=== PATIENT | female | born 1940 | race Caucasian/White ===

== ENCOUNTER → 2016-06-06 | Outpatient (CLI) | payer MEDICARE, OTHER ==
[2016-06-06 10:24] LABS: ABSOLUTE BASOPHILS # (AUTO) 0.1 10^3/uL (0.0-0.2); ABSOLUTE EOSINOPHILS # (AUTO) 0.2 10^3/uL (0.0-0.6); ABSOLUTE LYMPHOCYTES (AUTO) 1.4 10^3/uL (0.5-4.7); ABSOLUTE MONOCYTES (AUTO) 0.4 10^3/uL (0.1-1.4); ABSOLUTE NEUT (AUTO) 5.5 10^3/uL (1.7-8.2); BASOPHILS % (AUTO) 1.3 % (0-2); EOSINOPHILS % (AUTO) 2.1 % (0-6); HEMATOCRIT 41.2 % (36.0-47.0); HEMOGLOBIN 13.6 g/dL (12.0-15.5); HGB HCT DIFFERENCE -0.4; LYMPHOCYTES % (AUTO) 18.6 % (13-45); MEAN CORPUSCULAR HGB CONC 32.9 g/dL (32.0-36.0); MEAN CORPUSCULAR VOLUME 91 fl (80-97); MONOCYTES % (AUTO) 5.6 % (3-13); RED BLOOD COUNT 4.53 10^6/uL (3.72-5.28); RED CELL DISTRIBUTION WIDTH 13.5 % (11.5-14.0); SEGMENTED NEUTROPHILS % (AUTO) 72.4 % (42-78); WHITE BLOOD COUNT 7.6 10^3/uL (4.0-10.5)
[2016-06-06 10:42] LABS: ALANINE AMINOTRANSFERASE 28 U/L (9-52); ALBUMIN 3.7 g/dL (3.5-5.0); ALKALINE PHOSPHATASE 81 U/L (38-126); ANION GAP 11 (5-19); ASPARTATE AMINO TRANSFERASE 15 U/L (14-36); BILIRUBIN,TOTAL 0.6 mg/dL (0.2-1.3); BLOOD UREA NITROGEN 14 mg/dL (7-20); CALCIUM 9.4 mg/dL (8.4-10.2); CARBON DIOXIDE 28 mmol/L (22-30); CHLORIDE 103 mmol/L (98-107); CHOLESTEROL 139.87 mg/dL (0-200); CREATININE RESULT 0.68 mg/dL (0.52-1.25); Direct HDL 45 mg/dL (>40); GLUCOSE 92 mg/dL (75-110); POTASSIUM 4.6 mmol/L (3.6-5.0); SODIUM 141.9 mmol/L (137-145); TOTAL PROTEIN 6.2 g/dL (6.3-8.2); TRIGLYCERIDES 116 mg/dL (<150)
[2016-06-06 10:57] LABS: DIRECT LDL 65 mg/dL (<100)
[2016-06-06 11:01] LABS: FREE T3 3.47 pg/mL (2.77-5.27)
[2016-06-06 11:15] LABS: THYROID STIMULATING HORMONE 2.2 uIU/mL (0.47-4.68)
[2016-06-07 07:10] LABS: VITAMIN D 25-HYDROXY 42.9 ng/mL (30.0-100.0)
[2016-06-07 12:54] LABS: INSULIN 9.9 uIU/mL (2.6-24.9)
== END ==
LOC: OD 08:36
PROVIDERS: ATTEND Internal Medicine
DX: R73.9 Hyperglycemia, unspecified (principal); I10 Essential (primary) hypertension; R53.83 Other fatigue; J44.9 Chronic obstructive pulmonary disease, unspecified; E78.5 Hyperlipidemia, unspecified; D64.9 Anemia, unspecified
CPT/HCPCS: 36415; 80053; 80061; 82306; 82607; 82746; 83036; 83525; 84439; 84443; 84481; 85025

== ENCOUNTER 2016-09-13 07:50 | Day surgery (SDC) | payer MEDICARE, OTHER ==
[2016-08-31 12:01] LABS: HEMATOCRIT 39.8 % (36.0-47.0); HEMOGLOBIN 13.1 g/dL (12.0-15.5); HGB HCT DIFFERENCE -0.5; MEAN CORPUSCULAR HEMOGLOBIN 30.3 pg (27.0-33.4); MEAN CORPUSCULAR VOLUME 92 fl (80-97); RED BLOOD COUNT 4.34 10^6/uL (3.72-5.28); RED CELL DISTRIBUTION WIDTH 14.2 % (11.5-14.0); WHITE BLOOD COUNT 7.9 10^3/uL (4.0-10.5)
[2016-08-31 12:05] LABS: PARTIAL THROMBOPLASTIN TIME 32.6 SEC (23.5-35.8); PROTHROMBIN TIME 12.1 SEC (11.4-15.4)
[2016-08-31 12:25] LABS: ANION GAP 8 (5-19); BLOOD UREA NITROGEN 12 mg/dL (7-20); CALCIUM 9.5 mg/dL (8.4-10.2); CARBON DIOXIDE 31 mmol/L (22-30); CHLORIDE 102 mmol/L (98-107); CREATININE RESULT 0.66 mg/dL (0.52-1.25); GLUCOSE 77 mg/dL (75-110); POTASSIUM 4.7 mmol/L (3.6-5.0)
--- NOTE | 2016-09-01 09:57 | EKG REPORT ---
SEVERITY:- NORMAL ECG - SINUS RHYTHM : Confirmed by: Katy Velez 01-Sep-2016 09:55:06
[~2016-09-13 07:50] MED LIST: CEFAZOLIN 1 GM/D5W RTU 1 GM/50 ML RTUPB IV PRN; LACTATED RINGERS 1000 ML IV PRN; LIDOCAINE 0.5% INJ-PF (5 MG/ML) 50 ML SDV ONE; LIDOCAINE 0.5% INJ-PF (5 MG/ML) 50 ML SDV SUBCUT PRN
[2016-09-13] MEDS ORDERED: FENTANYL CITRATE INJ/PF 100 MCG/2 ML AMPUL ONE (09:40)
[2016-09-13] MEDS ORDERED: KETOROLAC TROMETHAMINE 60 MG/2 ML SDV ONE (09:40)
[2016-09-13] MEDS ORDERED: MIDAZOLAM 2 MG/2 ML INJ ONE ×2 (09:40→10:10)
[2016-09-13] MEDS ORDERED: PROMETHAZINE HCL INJ 25 MG/1 ML VIAL IV PRN (10:03)
[2016-09-13] MEDS ORDERED: FENTANYL CITRATE INJ/PF 100 MCG/2 ML AMPUL IV PRN ×3 (10:03)
[2016-09-13] MEDS ORDERED: MEPERIDINE HCL/PF INJ 25 MG/1 ML DISP.SYRIN IV PRN (10:03)
[2016-09-13] MEDS ORDERED: DIPHENHYDRAMINE HCL 50 MG/ML VIAL IV PRN (10:03)
[2016-09-13] MEDS ORDERED: MORPHINE SULFATE 10 MG/ML INJ IV PRN (10:03)
--- NOTE | 2016-09-13 11:38 | Operative Report ---
Operative Report DATE OF SURGERY: 09/13/16 PREOPERATIVE DIAGNOSIS: Ganglion of the left ring finger PIP joint area POSTOPERATIVE DIAGNOSIS: Multi-lobular ganglion of the left ring finger PIP joint region OPERATION: Excision of multi lobular ganglion of the left ring finger at the PIP joint level SURGEON: CARINE MADRID ANESTHESIA: IV-Regional - Romi block TISSUE REMOVED OR ALTERED: Multi-lobular ganglion of the left ring finger ESTIMATED BLOOD LOSS: Minimal
--- NOTE | 2016-09-13 11:40 | PDOC DISCHARGE SUMMARY ---
Discharge Summary (SDC) - Discharge Final Diagnosis: Left ring finger ganglion of the PIP joint Date of Surgery: 09/13/16 Condition: Good Treatment or Instructions: Leave the top dressing on for 2 days, then removed. Leave the steri-strip tapes on for 5 days, then removal. Then cleaning wound with peroxide and apply Neosporin/bacitracin 3 times per day. Antibiotics for 1 day, then discontinue. Elevate operative area to decrease swelling. Do not strain, or lift heavy objects. Call for excessive bleeding, increased temperature of 101, uncontrolled pain, or excessive nausea or vomiting. You may reach Dr. Bacon through his office at [phone]. In the event of an emergency after hours, then contact Dr. Bacon through [facility]. Return to the office for a postop check on . The time will be scheduled by the nursing staff of [facility] prior to discharge. Please give the patient a copy of their labs and EKG so they can bring this to their PMD. Thank you Portions of this note may be dictated using Transcriptic voice recognition software. Occasional variations and spelling and vocabulary could be possible and are unintentional. Additionally, there is a chance that some errors may not be caught or corrected. Please notify the offer of any discrepancies noted or if any statements are unclear. Discharge Diet: As Tolerated Discharge Activity: Activity As Tolerated - Keep the operative area elevated and monitor capillary refill
[2016-09-13 15:51] VITALS: BP 138/69
--- NOTE | 2016-09-26 14:30 | OPERATIVE REPORT E ---
Operative Report NAME: JONNY KEITA : 1940 AGE: 75Y DATE OF SURGERY: ROOM: PREOPERATIVE DIAGNOSIS: GANGLION OF THE LEFT RING FINGER PIP JOINT AREA. POSTOPERATIVE DIAGNOSIS: MULTILOBULAR GANGLION OF THE LEFT RING FINGER PIP JOINT REGION. OPERATION: Excision of multilobular ganglion of the left ring finger at the PIP joint level. SURGEON: CARINE MADRID JR., M.D. ANESTHESIA: [place] block. TISSUE REMOVED OR ALTERED: Multilobular ganglion of the left ring finger. ESTIMATED BLOOD LOSS: Minimal. COUNTS: Correct. PROCEDURE: The patient had a Romi block via Anesthesia. The patient's arm was then prepped with Betadine scrub and a Betadine solution and draped in a sterile aseptic manner. An outline was made in the curvilinear fashion overlying the area of the ganglion on the left ring finger at the PIP joint level. After the incision was made, it was carried down to encounter the ganglion. Once we encountered the ganglion, we then went ahead and dissected it 360 degrees. In order to get exposure to where it entered into the joint, we had to release the lateral band. The lateral band was then released and brought forward in order to expose the joint capsule. We then traced the stalk of the ganglion towards the joint capsule and then we went ahead and noted that this was a multilobular ganglion. There were multiple areas of lobule that extended underneath the whole extensor mechanism, both distally and proximally. We [id number] dissected all of this ganglion from the distal and the proximal aspect, excising it from underneath the extensor tendon. We then were able to trace this down to the stalk that entered into the joint. Again, please note that we had to move the lateral band in order to expose the joint. We then went ahead and resected the joint capsule from the central slip of the extensor mechanism down to the collateral ligament, so there was a complete open area, so there would be no recurrence. Once we completed this, we were able to remove the ganglion with its multiloculated cystic areas and remove this with a good opening in the lateral joint capsule so that we again decreased the chance of recurrence. We then placed a 5-0 Prolene suture to reapproximate the lateral band to the rest of the extensor mechanism. After this, we then irrigated with a Betadine saline solution and then we assured that there was no possible signs that would bleed once we let the tourniquet down. We then went ahead and placed a [place] at the base of the finger, let the tourniquet down and then finished up the closure. We used 4-0 Prolene, both horizontal and interrupted sutures. We then released the finger tourniquet, put pressure on the area, applied Bacitracin and Xeroform and a finger dressing with a finger splint was applied in order to allow the lateral band to reaccommodate back into his new position after the repair and fixation that we had performed. Again, she was placed in a splint and the tip of the finger was left out so there was good capillary refill. The patient tolerated it well, no complications. DICTATING PHYSICIAN: CARINE MADRID JR., M.D. [id number] CRYSTAL#: [id number] ID: [id number] JOB#: [id number] ACCT: [id number] cc:CARINE MADRID JR., M.D. >
== END 2016-09-13 13:35 | disposition home or self-care (01) ==
LOC: OROUT 07:50
PROVIDERS: ATTEND Plastic Surgery
PROC: 0RBX0ZZ Excision of Left Finger Phalangeal Joint, Open Approach (ICD-10-PCS; principal; 2016-09-13 10:00)
DX: M67.442 Ganglion, left hand (principal); M19.90 Unspecified osteoarthritis, unspecified site; I10 Essential (primary) hypertension; J44.9 Chronic obstructive pulmonary disease, unspecified; K21.9 Gastro-esophageal reflux disease without esophagitis; E66.9 Obesity, unspecified; Z79.899 Other long term (current) drug therapy; Z79.01 Long term (current) use of anticoagulants; Z79.82 Long term (current) use of aspirin; Z79.51 Long term (current) use of inhaled steroids; Z68.30 Body mass index [BMI] 30.0-30.9, adult
CPT/HCPCS: 93005; 36415; 85027; 85610; 85730; 80048; 88304 ×2; 93010; 26160; J2250; J0690; J1885; J3010; J3490; 1810

== ENCOUNTER 2017-03-29 14:41 | Emergency (ER) | payer MEDICARE, OTHER ==
--- NOTE | 2017-03-29 14:56 | ER Document Report ---
ED Extremity Problem, Upper - General Chief Complaint: Wrist Injury Stated Complaint: LEFT WRIST PAIN Time Seen by Provider: 03/29/17 14:53 Notes: The patient is a 76-year-old female who presents after a fall with left wrist pain and deformity. She was holding onto the dog leash when it began to run and she fell on her outstretched hand. She received 75 mcg fentanyl intranasally by EMS prior to arrival with some relief of her symptoms. Patient denies any other injuries and denies numbness, tingling, open wounds, head injury or LOC. TRAVEL OUTSIDE OF THE [place] IN LAST 30 DAYS: No - Related Data Allergies/Adverse Reactions: acetaminophen [From Vicodin] Allergy (Verified 03/29/17 15:05) ITCHING hydrocodone bitartrate [From Vicodin] Allergy (Verified 03/29/17 15:05) ITCHING Iodinated Contrast- Oral and IV Dye [IV Dye, Iodine Containing] Allergy ( Verified 03/29/17 15:05) Hives levofloxacin [From Levaquin] Allergy (Verified 03/29/17 15:05) nitrofurantoin macrocrystalline [From Macrobid] Allergy (Verified 03/29/17 15:05 ) SWELLING solifenacin succinate [From Vesicare] Allergy (Verified 03/29/17 15:05) Generalized Itching Sulfa (Sulfonamide Antibiotics) Allergy (Verified 03/29/17 15:05) Past Medical History - General Information source: Patient, Emergency Med Personnel - Social History Smoking Status: Unknown if Ever Smoked Family History: Reviewed & Not Pertinent - Past Medical History Cardiac Medical History: Reports: Hx Hypertension Denies: Hx Coronary Artery Disease, Hx Heart Attack Pulmonary Medical History: Reports: Hx Asthma - MILD, Hx Bronchitis, Hx COPD, Hx Pneumonia Neurological Medical History: Denies: Hx Cerebrovascular Accident, Hx Seizures Malignancy Medical History: Reports: Hx Breast Cancer - right GI Medical History: Reports: Hx Gastroesophageal Reflux Disease. Denies: Hx Hepatitis, Hx Hiatal Hernia, Hx Ulcer Musculoskeltal Medical History: Reports Hx Arthritis - GENERALIZED Psychiatric Medical History: Reports: Hx Anxiety, Hx Depression Infectious Medical History: Denies: Hx Hepatitis Past Surgical History: Reports: Hx Bowel Surgery, Hx Cholecystectomy, Hx Herniorrhaphy, Hx Hysterectomy, Hx Tonsillectomy, Hx Tubal Ligation. Denies: Hx Section, Hx Mastectomy - AVOID RT ARM, Hx Open Heart Surgery, Hx Pacemaker - Immunizations Hx Diphtheria, Pertussis, Tetanus Vaccination: - UNKNOWN Hx Pneumococcal Vaccination: 02/02/16 Review of Systems - Review of Systems Notes: REVIEW OF SYSTEMS: CONSTITUTIONAL: -fevers, -chills EENT: -eye pain, -difficulty swallowing, -nasal congestion CARDIOVASCULAR:-chest pain, -syncope. RESPIRATORY: -cough, -SOB GASTROINTESTINAL: -abdominal pain, - nausea, -vomiting, -diarrhea GENITOURINARY: -dysuria, -hematuria MUSCULOSKELETAL: +left wrist pain, -back pain, -neck pain SKIN: -rash or skin lesions. HEMATOLOGIC: -easy bruising or bleeding. LYMPHATIC: -swollen, enlarged glands. NEUROLOGICAL: -altered mental status or loss of consciousness, -headache, - neurologic symptoms PSYCHIATRIC: -anxiety, -depression. ALL OTHER SYSTEMS REVIEWED AND NEGATIVE. Physical Exam - Vital signs Vitals: Temp Pulse Resp BP Pulse Ox 97.5 F 90 16 166/69 H 96 03/29/17 14:45 03/29/17 14:45 03/29/17 14:45 03/29/17 14:45 03/29/17 14:45 - Notes Notes: PHYSICAL EXAMINATION: GENERAL: Well-appearing, well-nourished and in no acute distress. HEAD: Atraumatic, normocephalic. EYES: Pupils equal round and reactive to light, extraocular movements intact, sclera anicteric, conjunctiva are normal. ENT: nares patent, oropharynx clear without exudates. Moist mucous membranes. NECK: Normal range of motion, supple without lymphadenopathy LUNGS: Breath sounds clear to auscultation bilaterally and equal. No wheezes rales or rhonchi. HEART: Regular rate and rhythm without murmurs ABDOMEN: Soft, nontender, normoactive bowel sounds. No guarding, no rebound. No masses appreciated. EXTREMITIES: Visible deformity of left wrist with ecchymosis. Brisk capillary refill. NEUROLOGICAL: Cranial nerves grossly intact. Normal speech, normal gait. Normal sensory and motor exams. Left sensory and motor aspects of radial, ulnar and median nerves intact. PSYCH: Normal mood, normal affect. SKIN: Warm, Dry, normal turgor, no rashes or lesions noted. Course - Re-evaluation Re-evalutation: Patient with a comminuted left distal radius and ulnar fracture after a strictly mechanical fall when her dog started to run and she was gripping the leash. She is neurovascularly intact distally on arrival to the ER. Using procedural sedation with propofol, the alignment of the radius and ulnar were improved and she remains neurovascularly intact distally. She was placed in a sugar tong splint and instructed to follow-up with orthopedics as soon as possible. No orthopedics area field person at [place] today. Given strict return precautions and she understands. - Vital Signs Vital signs: Temp Pulse Resp BP Pulse Ox 97.5 F 80 18 157/63 H 97 03/29/17 14:45 03/29/17 16:35 03/29/17 16:35 03/29/17 16:35 03/29/17 16:35 - Diagnostic Test Radiology reviewed: Image reviewed, Reports reviewed Radiology results interpreted by me: lEFT WRIST X-RAY: COMMINUTED DISPLACED FRACTURES OF THE DISTAL RADIUS AND ULNA. Procedures - Conscious Sedation Conscious sedation Time started: 16:12 Time completed: 16:39 Consent obtained: Yes Indication: Left wrist fracture Last meal: 1100 Pt with a mild systemic disease.: P2. - ASA Classification. Airway Evaluation: Normal anatomy Mallampati Classification: Class 1 Used during procedure: Suction available, IV access obtained, Pulse ox on pt., motorcycle assembler on pt. Medications administered: Diprivan Reversal agents: None I personally performed/intraservice time: 30 min or less Complications: No - Immobilization Left Wrist Time completed: 16:35 Pre-Proc Neuro Vasc Exam: Normal Immobilizer type: Sugar tong Performed by: Provider Post-Proc Neuro Vasc Exam: Normal Alignment checked and good: Yes - Joint Reduction/Fracture Care Left Wrist Time completed: 16:30 Consent obtained: Yes Conscious sedation: Yes Pre-procedure NV exam: Yes Fracture: Closed Post-procedure NV exam: Yes Post-reduction x-ray: Joint reduced Reduction attempts: 2 Complications: No Discharge - Discharge Clinical Impression: Left wrist fracture Qualifiers: Encounter type: initial encounter Fracture type: closed Qualified Code(s): S62.102A - Fracture of unspecified carpal bone, left wrist, initial encounter for closed fracture Condition: Stable Disposition: HOME, SELF-CARE Additional Instructions: You must follow-up with the orthopedic surgeon for further evaluation and treatment. Take Motrin every 6 hours to help with the pain and Percocet for severe pain. Use a stool softener when taking Percocet. Keep your wrist in the splint until you see the orthopedic surgeon. Return to the ER if you notice any decreased sensation or any other concerns. Fractured Radius and Ulna Both bones of the forearm, the radius and the ulna, are fractured. This type of fracture is typically caused by falling onto the outstretched hand. The fractures are not serious, however, and should heal well with adequate protection. Your physician's evaluation shows the bones are now in good position to heal. A cast or splint is used to protect the fractures. For the first few days after the injury, the arm should be elevated and ice packed. Most often, a splint is used first, with a cast later on. Healing takes from four to eight weeks, depending on the age of the patient and the seriousness of the broken bones. Your doctor has explained the treatment plan. It's important that you follow up as instructed to prevent complications. Call the doctor or return at once if severe pain or swelling occur, or if the hand becomes numb, swollen, or discolored. Prescriptions: Oxycodone HCl/Acetaminophen [Percocet 5-325 mg Tablet] 1 - 2 tab PO Q4H PRN #15 tablet PRN Reason: Forms: Elevated Blood Pressure Referrals: ALEJANDRA PADILLA DO [ACTIVE STAFF] - Follow up as needed
[2017-03-29] MEDS ORDERED: MORPHINE SULFATE 10 MG/ML INJ IV ONE (15:01)
[2017-03-29] MEDS ORDERED: PROPOFOL INJ 200 MG/20 ML VIAL IV ONE ×5 (15:25→16:47)
[2017-03-29] MEDS ORDERED: NORMAL SALINE 1000 ML 1,000 ML IV ONE (15:25)
--- NOTE | 2017-03-29 15:46 | RADIOLOGY REPORT (SQ) ---
EXAM DESCRIPTION: WRIST LEFT 3 VIEWS COMPLETED DATE/TIME: 03/29/2017 3:31 pm REASON FOR STUDY: fall COMPARISON: None. NUMBER OF VIEWS: Three views. TECHNIQUE: AP, lateral, and oblique radiographic images acquired of the left wrist. LIMITATIONS: None. FINDINGS: MINERALIZATION: Normal. BONES: Comminuted displaced fractures of the distal radius and ulna. Impacted fracture of the distal radius. Degenerative changes at the 1st carpometacarpal joint. SOFT TISSUES: Diffuse soft tissue swelling. No foreign body. OTHER: No other significant finding. IMPRESSION: COMMINUTED DISPLACED FRACTURES OF THE DISTAL RADIUS AND ULNA. TECHNICAL DOCUMENTATION: JOB ID: [id number] [employer]- All Rights Reserved
[2017-03-29 16:47] VITALS: BP 162/72
[2017-03-29] MEDS ORDERED: IBUPROFEN 800 MG TABLET PO ONE (17:01)
--- NOTE | 2017-03-29 17:09 | RADIOLOGY REPORT (SQ) ---
EXAM DESCRIPTION: NO CHG FLUORO; WRIST LEFT 2 VIEWS COMPLETED DATE/TIME: 03/29/2017 4:54 pm REASON FOR STUDY: CR LT WRIST COMPARISON: 03/29/2017 FLUOROSCOPY TIME: 7 seconds 6 images saved to PACS. TECHNIQUE: Intra-operative images acquired during surgical procedure to evaluate progress. NUMBER OF IMAGES: 6 LIMITATIONS: None. FINDINGS: Multiple AP and lateral images of the left wrist were obtained during reduction of fractur es involving the distal left radius and ulna. Compared to the presenting images there has been signi ficant improvement in the position and alignment of the fracture fragments. On the final 2,a fiberg lass cast has been placed. Severe degenerative changes are noted involving the 1st carpal metacarpal joint. IMPRESSION: Fractured distal radius and ulna status post reduction. COMMENT: Quality ID [id number]: Final reports for procedures using fluoroscopy that document radiation exp osure indices, or exposure time and number of fluorographic images (if radiation exposure indices are not available) Please consult full operative report of the attending physician for description of the procedure. TECHNICAL DOCUMENTATION: JOB ID: [id number] [employer]- All Rights Reserved
== END 2017-03-29 17:09 | disposition home or self-care (01) ==
LOC: ER 14:41
DX: S52.692A Other fracture of lower end of left ulna, initial encounter for closed fracture (principal); S52.592A Other fractures of lower end of left radius, initial encounter for closed fracture; W19.XXXA Unspecified fall, initial encounter; Y93.89 Activity, other specified; I10 Essential (primary) hypertension; J44.9 Chronic obstructive pulmonary disease, unspecified; Z88.5 Allergy status to narcotic agent; Z91.041 Radiographic dye allergy status; Z88.1 Allergy status to other antibiotic agents; Z88.2 Allergy status to sulfonamides; Z88.8 Allergy status to other drugs, medicaments and biological substances
CPT/HCPCS: 99283; 99153; 99152; 96374; 73100; 73110; 25605; A9270; J2270; J7030; J2704

== ENCOUNTER → 2017-03-30 | Outpatient (CLI) | payer MEDICARE, OTHER ==
--- NOTE | 2017-03-30 16:19 | RADIOLOGY REPORT (SQ) ---
EXAM DESCRIPTION: CT LT UPPER EXTREMITY WITHOUT COMPLETED DATE/TIME: 03/30/2017 2:05 pm REASON FOR STUDY: M25.532 PAIN IN LEFT WRIST M25.532 PAIN IN LEFT WRIST COMPARISON: None. TECHNIQUE: Axial imaging performed through the left wrist with reformatted oblique coronal and obliq ue sagittal imaging windowed for bone and soft tissues. Additional 3D shaded surface display images of the wrist to include the distal radius and ulna regene rated, safe to pac's All CT scanners at this facility use dose modulation, iterative reconstruction, and/or weight based d osing when appropriate to reduce radiation dose to as low as reasonably achievable (ALARA). [facility]: Dose Right [facility]: CareDose [facility]: Dose Right [facility]: Teradose 4D [facility]: [employer] RADIATION DOSE: CT Rad equipment meets quality standard of care and radiation dose reduction techniq ues were employed. CTDIvol: 4.5 mGy. DLP: 94 mGy-cm. mGy. LIMITATIONS: None. FINDINGS: Bones are osteopenic. Acute fracture of the distal right radius metaphysis with intra-articular extension. There is slight palmar displacement of the largest distal radius articular surface fragment best shown on sagittal r econstruction series 106, images 13-20. There is an acute fracture of the distal ulnar metaphysis and ulnar styloid with slight palmar angula tion of the fracture fragments, best shown on series 106, image 24. Carpal bones themselves are intact. No gross widening of the scapholunate or lunatotriquetral interv al. 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 Remainder of the left wrist and hand is otherwise unremarkable aside from an ulnar gutter splint, and diffuse soft tissue swelling. IMPRESSION: Comminuted distal left radius and ulna fractures as above. TECHNICAL DOCUMENTATION: JOB ID: [id number] Quality ID # [id number]: Final reports with documentation of one or more dose reduction techniques (e.g., Au tomated exposure control, adjustment of the mA and/or kV according to patient size, use of iterative reconstruction technique) 2010 [employer]- All Rights Reserved
== END ==
LOC: RAD 13:48
PROVIDERS: ATTEND Orthopaedic Surgery
DX: M25.532 Pain in left wrist (principal)

== ENCOUNTER 2017-04-04 10:57 | Day surgery (SDC) | payer MEDICARE, OTHER ==
[2017-03-31 11:06] LABS: APPEARANCE,URINE CLEAR; BILIRUBIN,URINE NEGATIVE (NEGATIVE); COLOR,URINE YELLOW; GLUCOSE, URINE NEGATIVE (NEGATIVE); KETONES,URINE NEGATIVE (NEGATIVE); LEUKOCYTE ESTERASE,URINE TRACE (NEGATIVE); NITRITE,URINE NEGATIVE (NEGATIVE); PROTEIN,URINE NEGATIVE (NEGATIVE); URINE SPECIFIC GRAVITY 1.009; UROBILINOGEN,URINE NEGATIVE mg/dL (<2.0)
[2017-03-31 11:09] LABS: ABSOLUTE BASOPHILS # (AUTO) 0.1 10^3/uL (0.0-0.2); ABSOLUTE EOSINOPHILS # (AUTO) 0.2 10^3/uL (0.0-0.6); ABSOLUTE LYMPHOCYTES (AUTO) 1.6 10^3/uL (0.5-4.7); ABSOLUTE MONOCYTES (AUTO) 0.8 10^3/uL (0.1-1.4); ABSOLUTE NEUT (AUTO) 8.1 10^3/uL (1.7-8.2); BASOPHILS % (AUTO) 1.2 % (0-2); EOSINOPHILS % (AUTO) 2.1 % (0-6); HEMATOCRIT 37.3 % (36.0-47.0); HEMOGLOBIN 12.3 g/dL (12.0-15.5); LYMPHOCYTES % (AUTO) 14.5 % (13-45); MEAN CORPUSCULAR HEMOGLOBIN 30.3 pg (27.0-33.4); MEAN CORPUSCULAR VOLUME 92 fl (80-97); MONOCYTES % (AUTO) 7.1 % (3-13); PLATELET COUNT 432 10^3/uL (150-450); RED BLOOD COUNT 4.06 10^6/uL (3.72-5.28); RED CELL DISTRIBUTION WIDTH 14.4 % (11.5-14.0); SEGMENTED NEUTROPHILS % (AUTO) 75.1 % (42-78); TOTAL CELLS COUNTED % (AUTO) 100 %; WHITE BLOOD COUNT 10.8 10^3/uL (4.0-10.5)
[2017-03-31 11:37] LABS: ANION GAP 7 (5-19); BLOOD UREA NITROGEN 13 mg/dL (7-20); CALCIUM 9.6 mg/dL (8.4-10.2); CARBON DIOXIDE 29 mmol/L (22-30); CHLORIDE 105 mmol/L (98-107); GLUCOSE 78 mg/dL (75-110); POTASSIUM 4.7 mmol/L (3.6-5.0); SODIUM 141.3 mmol/L (137-145)
--- NOTE | 2017-03-31 11:55 | RADIOLOGY REPORT (SQ) ---
EXAM DESCRIPTION: CHEST PA/LATERAL COMPLETED DATE/TIME: 03/31/2017 11:06 am REASON FOR STUDY: PRE OP COMPARISON: Chest films 08/06/2015, 02/07/2014 CT chest 02/18/2013 EXAM PARAMETERS: NUMBER OF VIEWS: two views TECHNIQUE: Digital Frontal and Lateral radiographic views of the chest acquired. RADIATION DOSE: NA LIMITATIONS: none FINDINGS: LUNGS AND PLEURA: Chronic elevation right hemidiaphragm unchanged. Minimal bandlike right middle lobe scarring or atelectasis, similar compared to CT chest 02/18/2013. Left lung well inflated and clear. No right or left pleural effusions or pneumothorax. MEDIASTINUM AND HILAR STRUCTURES: No masses or contour abnormalities. HEART AND VASCULAR STRUCTURES: Heart normal size. No evidence for failure. BONES: Osteoporotic. No acute changes HARDWARE: Right axillary surgical clips post axillary lymph node dissection. Clips right upper quadr ant post cholecystectomy OTHER: No other significant finding. IMPRESSION: No acute findings TECHNICAL DOCUMENTATION: JOB ID: [id number] [employer]- All Rights Reserved
--- NOTE | 2017-04-02 11:04 | EKG REPORT ---
SEVERITY:- NORMAL ECG - SINUS RHYTHM : Confirmed by: Padma Mayes MD 02-Apr-2017 11:03:46
[~2017-04-04 10:57] MED LIST changes: +BUPIVACAINE HCL 0.5 % INJ/PF 30 ML SDV ONE; -CEFAZOLIN 1 GM/D5W RTU 1 GM/50 ML RTUPB IV PRN; +CEFAZOLIN 2 GM/D5W RTU 2 GM/50 ML RTUPB IV PRN; -LACTATED RINGERS 1000 ML IV PRN; -LIDOCAINE 0.5% INJ-PF (5 MG/ML) 50 ML SDV ONE; -LIDOCAINE 0.5% INJ-PF (5 MG/ML) 50 ML SDV SUBCUT PRN
[2017-04-04] MEDS ORDERED: FENTANYL CITRATE INJ/PF 100 MCG/2 ML AMPUL ONE (11:42)
[2017-04-04] MEDS ORDERED: MIDAZOLAM 2 MG/2 ML INJ ONE (11:42)
[2017-04-04] MEDS ORDERED: PROPOFOL INJ 200 MG/20 ML VIAL IV ONE (11:43)
[2017-04-04] MEDS ORDERED: DIPHENHYDRAMINE HCL 50 MG/ML VIAL IV PRN (12:37)
[2017-04-04] MEDS ORDERED: FENTANYL CITRATE INJ/PF 100 MCG/2 ML AMPUL IV PRN ×3 (12:37)
[2017-04-04] MEDS ORDERED: PROMETHAZINE HCL INJ 25 MG/1 ML VIAL IV PRN (12:37)
[2017-04-04] MEDS ORDERED: OXYCODONE-ACETAMINOPHEN 5-325 MG TABLET PO PRN (14:06)
[2017-04-04] MEDS ORDERED: HYDROMORPHONE HCL INJ/PF 2 MG/ML AMPULE IV PRN (14:06)
--- NOTE | 2017-04-04 14:06 | PDOC DISCHARGE SUMMARY ---
Discharge Summary (SDC) - Discharge Final Diagnosis: Left Distal Radius Fracture Date of Surgery: 04/04/17 Discharge Date: 04/04/17 Condition: Good Treatment or Instructions: Schedule Follow Up w/ Dr. Melquiades Mcmahon @ [facility] to be seen in 10-14 days or as scheduled [place]: [place]: [place]: Ice and elevate Keep splint clean/dry/intact. If your fingers become numb please unwrap the [place] wrap but leave the splint in place, if the sensation does not return within 30 minutes please return to the emergency department. May begin finger range of motion attempting to make full fist. Please use ibuprofen (Motrin or Advil) 600-800 mg every 8 hours as needed for pain or fever. You may also use acetaminophen (Tylenol) 1000 mg every 4-6 hours as needed for pain or fever. Please be aware that many medications contain acetaminophen, do not exceed a total of 1000 mg of acetaminophen every 6 hours. If ibuprofen and acetaminophen are not sufficient for your pain you may take the Percocet. Please be aware that the Percocet does contain Tylenol. Stool softener of choice when on pain medication. vitamin C 500 mg daily x 51 days Prescriptions: Ibuprofen 800 mg PO Q8 PRN #30 tablet PRN Reason: Oxycodone HCl/Acetaminophen [Percocet 5-325 mg Tablet] 1 - 2 tab PO ASDIR PRN # 40 tablet PRN Reason: Referrals: BREONNA ESCOBEDO MD [Primary Care Provider] - Discharge Diet: As Tolerated Respiratory Treatments at Home: Deep Breathing/Coughing
--- NOTE | 2017-04-04 14:14 | Operative Report ---
Operative Report DATE OF SURGERY: 04/04/17 PREOPERATIVE DIAGNOSIS: Left Distal Radius Fracture + Distal Ulna Fracture POSTOPERATIVE DIAGNOSIS: Same OPERATION: 1. ORIF >3 Part Intra-articular Distal Radius Fracture (Arthroscopic Assisted). 2. Closed Reduction percutaneous pinning distal ulna fracture SURGEON: ALEJANDRA PADILLA ANESTHESIA: GA COMPLICATIONS: None ESTIMATED BLOOD LOSS: Minimal PROCEDURE: Indication for above procedure: 76-year-old female sustained a fall onto her outstretched left wrist. Patient was seen at the emergency room where attempted closed reduction was performed and patient was placed in a splint. Upon follow-up at my office we discussed treatment options and a CT scan was ordered demonstrating comminuted intra- articular distal radius fracture. Risks and benefits of the operative procedure were explained to the patient who verbalized understanding consented for the procedure. Procedure In Detail: Patient was seen and evaluated in the preoperative holding area. The LEFT upper extremity was initialized and marked. Patient received 2g of Ancef IV for bacterial prophylaxis. Patient was taken back to the operative room where transferred to the operative table and placed under general anesthesia. Once they were adequately anesthetized and a nonsterile tourniquet was placed on his upper extremity. A surgical team debriefing was performed ensuring all instrumentation was available, the surgical procedure was discussed with possible concerns reviewed. The upper extremity was prepped with chlorhexidine and alcohol and draped in a sterile fashion. A timeout was done identifying correct patient, procedure and extremity everyone in attendance agree with this and verbalized no concerns.The extremity was exsanguinated the tourniquet was inflated to 250 mmHg. A longitudinal skin incision was made via a volar approach of Mirza along the FCR tendon sheath. The FCR tendon sheath was opened and the FCR retracted ulnarly, the palmar cutaneous branch of the median nerve was identified and protected throughout the entirety of the case. The radial artery was identified and retracted radially. Blunt dissection was performed to the FPL which was carefully sweeped ulnarly. This brought me to the pronator quadratus which was elevated off of the distal radius via sharp dissection with a 15 blade to allow later repair. The fracture was then identified and a reduction maneuver was performed utilizing a Geneva elevator. Patient has significant osteopenic bone with notable comminution dorsally. Acceptable reduction was then obtained and a Narrow Acumed 3 hole volar distal radius plate was placed into position and fixated with a K wire distally x2. AP and lateral radiographs were then obtained demonstrating appropriate placement of the plate and acceptable reduction of the fracture. Using a reduction tenaculum I was able to bring the plate down to bone distally. Drilling the near cortex and to but not thru the far cortex a locking screw was then placed in the 3 distal holes. Two additional screws were placed into the styloid giving further stability to the radial styloid piece. The most distal radial styloid screw with a variable angle screw to obtain more fixation of the radial styloid fragment. AP and lateral radius were then done confirming appropriate placement of plate with no evidence of penetration intra-articular or within the DRUJ. I then turned my attention to the proximal screws. I drilled bicortically bringing the plate down to bone with a cortex screw. The remaining 2 holes proximally were drilled bicortically placing the appropriate size cortex in the proximal most hole and a locking screw in the distal shaft hole. AP and lateral radiographs were done confirming appropriate placement of the plate and reduction of the fracture there was latter-day of radial height, radial inclination and volar tilt. No evidence of dorsal screw prominence or intra-articular penetration of the DRUJ or radiocarpal joint. A 3-4 portal was then established and the arthroscope introduced into the radiocarpal joint. Diagnostic arthroscopy demonstrated acceptable reduction of the articular surface there was evidence of dorsal comminution but good stability under direct manipulation of the fracture. No evidence of intra- articular screw penetration was appreciated. With the assistance of C-arm fluoroscopy I then placed a 0.062 K wire through the distal ulna fragment into the ulnar shaft providing further stability. The K wire was then cut outside the skin and bent and Jurgan's ball placed. The tourniquet was then deflated any peripheral bleeding was coagulated bipolar cautery into the wound was dry. The wound was copiously irrigated with normal saline. There was no evidence of DRUJ instability on examination, Negative Ramírez's test, No crepitus with range of motion at the radiocarpal joint or DRUJ. I then closed the pronator quadratus with interrupted 3-0 Monocryl suture. Subcutaneous tissues were closed with interrupted 4-0 Monocryl suture. The skin was closed with a running horizontal mattress 3-0 nylon suture. 30 mL of 0.5% Marcaine were injected for postoperative pain control. Was dressed with sterile 4 x 4's and patient was placed in a well-padded volar splint with bias wrap. Sponge counts, instrument counts and needle counts were correct. There was no intraoperative complications patient tolerated procedure well stable to PACU. Postoperative plan: Patient will be switched to a short arm cast at her first postoperative followup visit and begin range of motion. Patient is encouraged to start vitamin C 500 mg daily for 51 days. Will obtain radiographs at followup of the wrist.
[2017-04-04] MEDS: FENTANYL CITRATE INJ/PF 100 MCG/2 ML AMPUL ONE ×2 (14:25→14:30)
[2017-04-04] MEDS ORDERED: SUCCINYLCHOLINE CHLORIDE INJ 200 MG/10 ML VIAL ONE (14:29)
[2017-04-04] MEDS ORDERED: ONDANSETRON HCL INJ/PF 4 MG/2 ML SDV ONE (14:29)
[2017-04-04] MEDS ORDERED: DEXAMETHASONE SOD PHOSPHATE INJ 4 MG/1 ML VIAL ONE (14:29)
[2017-04-04] MEDS ORDERED: LIDOCAINE 2% INJ-PF (20 MG/ML) 2 ML AMPUL ONE (14:29)
[2017-04-04] MEDS ORDERED: PROMETHAZINE HCL INJ 25 MG/1 ML VIAL ONE (14:42)
[2017-04-04] MEDS ORDERED: MORPHINE SULFATE 10 MG/ML INJ ONE (14:43)
--- NOTE | 2017-04-04 15:11 | RADIOLOGY REPORT (SQ) ---
EXAM DESCRIPTION: NO CHG FLUORO; WRIST LEFT 3 VIEWS COMPLETED DATE/TIME: 04/04/2017 2:29 pm REASON FOR STUDY: ORIF LEFT DISTAL RADIUS ASSISTED WITH FLUORO IN OR S52.532A COLLES' FRACTURE OF L EFT RADIUS, INIT FOR CLOS FX M25.532 PAIN IN LEFT WRIST COMPARISON: 03/29/2017. FLUOROSCOPY TIME: 2 minutes 2 seconds. 10 images saved to PACS. TECHNIQUE: Intra-operative images acquired during surgical procedure to evaluate progress. NUMBER OF IMAGES: 10 images. LIMITATIONS: None. FINDINGS: Images of the wrist acquired during surgical fixation and hardware placement. IMPRESSION: IMAGE(S) OBTAINED DURING PROCEDURE. COMMENT: Quality ID [id number]: Final reports for procedures using fluoroscopy that document radiation exp osure indices, or exposure time and number of fluorographic images (if radiation exposure indices are not available) Please consult full operative report of the attending physician for description of the procedure. TECHNICAL DOCUMENTATION: JOB ID: [id number] [employer]- All Rights Reserved
[2017-04-04 17:38] VITALS: BP 145/61
== END 2017-04-04 17:05 | disposition home or self-care (01) ==
LOC: OROUT 10:57
PROVIDERS: ATTEND Orthopaedic Surgery
PROC: 0PSL34Z Reposition Left Ulna with Internal Fixation Device, Percutaneous Approach (ICD-10-PCS; 2017-04-04)
PROC: 0RJP4ZZ Inspection of Left Wrist Joint, Percutaneous Endoscopic Approach (ICD-10-PCS; 2017-04-04)
PROC: 0PSJ04Z Reposition Left Radius with Internal Fixation Device, Open Approach (ICD-10-PCS; principal; 2017-04-04 13:00)
DX: S52.532A Colles' fracture of left radius, initial encounter for closed fracture (principal); S52.612A Displaced fracture of left ulna styloid process, initial encounter for closed fracture; W18.30XA Fall on same level, unspecified, initial encounter; M25.532 Pain in left wrist; I10 Essential (primary) hypertension; J44.9 Chronic obstructive pulmonary disease, unspecified; K21.9 Gastro-esophageal reflux disease without esophagitis; Z79.899 Other long term (current) drug therapy; Z88.2 Allergy status to sulfonamides; Z91.041 Radiographic dye allergy status; Z91.040 Latex allergy status; Z79.891 Long term (current) use of opiate analgesic; Z79.82 Long term (current) use of aspirin; Z87.891 Personal history of nicotine dependence; Z85.3 Personal history of malignant neoplasm of breast
CPT/HCPCS: 93005; 36415; 85025; 80048; 81001; 71020; 73110; 93010; 25609; 25651; 29840; C1713; C1769; J2250; J1100; J3010; J2270; J2550; J0330; J2405; J2704; J0690; J3490; 01830

== ENCOUNTER → 2017-05-10 | Outpatient (CLI) | payer MEDICARE, OTHER ==
[2017-05-10 08:18] LABS: ABSOLUTE BASOPHILS # (AUTO) 0.1 10^3/uL (0.0-0.2); ABSOLUTE EOSINOPHILS # (AUTO) 0.2 10^3/uL (0.0-0.6); ABSOLUTE LYMPHOCYTES (AUTO) 1.8 10^3/uL (0.5-4.7); ABSOLUTE MONOCYTES (AUTO) 0.5 10^3/uL (0.1-1.4); ABSOLUTE NEUT (AUTO) 5.9 10^3/uL (1.7-8.2); BASOPHILS % (AUTO) 1.4 % (0-2); EOSINOPHILS % (AUTO) 2.5 % (0-6); HEMATOCRIT 38.8 % (36.0-47.0); LYMPHOCYTES % (AUTO) 20.7 % (13-45); MEAN CORPUSCULAR HEMOGLOBIN 30.4 pg (27.0-33.4); MEAN CORPUSCULAR HGB CONC 33.5 g/dL (32.0-36.0); MEAN CORPUSCULAR VOLUME 91 fl (80-97); MONOCYTES % (AUTO) 6.3 % (3-13); PLATELET COUNT 457 10^3/uL (150-450); RED BLOOD COUNT 4.27 10^6/uL (3.72-5.28); SEGMENTED NEUTROPHILS % (AUTO) 69.1 % (42-78); TOTAL CELLS COUNTED % (AUTO) 100 %; WHITE BLOOD COUNT 8.6 10^3/uL (4.0-10.5)
[2017-05-10 08:43] LABS: ALANINE AMINOTRANSFERASE 23 U/L (9-52); ALBUMIN 3.9 g/dL (3.5-5.0); ALKALINE PHOSPHATASE 76 U/L (38-126); ANION GAP 9 (5-19); ASPARTATE AMINO TRANSFERASE 13 U/L (14-36); BILIRUBIN,DIRECT 0.1 mg/dL (0.0-0.4); BILIRUBIN,TOTAL 0.3 mg/dL (0.2-1.3); BLOOD UREA NITROGEN 14 mg/dL (7-20); CALCIUM 9.6 mg/dL (8.4-10.2); CARBON DIOXIDE 32 mmol/L (22-30); CHLORIDE 102 mmol/L (98-107); CHOLESTEROL 126.33 mg/dL (0-200); GLUCOSE 94 mg/dL (75-110); POTASSIUM 4.8 mmol/L (3.6-5.0); SODIUM 143.3 mmol/L (137-145); TOTAL PROTEIN 5.8 g/dL (6.3-8.2); TRIGLYCERIDES 109 mg/dL (<150)
[2017-05-10 08:53] LABS: DIRECT LDL 64 mg/dL (<100)
== END ==
LOC: OD 07:44
PROVIDERS: ATTEND Internal Medicine
DX: I10 Essential (primary) hypertension (principal); R73.9 Hyperglycemia, unspecified; E78.5 Hyperlipidemia, unspecified; R53.83 Other fatigue; J44.9 Chronic obstructive pulmonary disease, unspecified
CPT/HCPCS: 36415; 80053; 80061; 83036; 84443; 85025

== ENCOUNTER → 2018-01-22 | Outpatient (CLI) | payer MEDICARE, OTHER ==
[2018-01-22 08:56] LABS: ABSOLUTE BASOPHILS # (AUTO) 0.1 10^3/uL (0.0-0.2); ABSOLUTE EOSINOPHILS # (AUTO) 0.2 10^3/uL (0.0-0.6); ABSOLUTE LYMPHOCYTES (AUTO) 1.5 10^3/uL (0.5-4.7); ABSOLUTE MONOCYTES (AUTO) 0.4 10^3/uL (0.1-1.4); ABSOLUTE NEUT (AUTO) 4.3 10^3/uL (1.7-8.2); BASOPHILS % (AUTO) 1.4 % (0-2); EOSINOPHILS % (AUTO) 2.9 % (0-6); HEMATOCRIT 39.5 % (36.0-47.0); HEMOGLOBIN 13.1 g/dL (12.0-15.5); LYMPHOCYTES % (AUTO) 23.2 % (13-45); MEAN CORPUSCULAR HEMOGLOBIN 29.1 pg (27.0-33.4); MEAN CORPUSCULAR HGB CONC 33.1 g/dL (32.0-36.0); MEAN CORPUSCULAR VOLUME 88 fl (80-97); MONOCYTES % (AUTO) 6.8 % (3-13); PLATELET COUNT 476 10^3/uL (150-450); SEGMENTED NEUTROPHILS % (AUTO) 65.7 % (42-78); TOTAL CELLS COUNTED % (AUTO) 100 %; WHITE BLOOD COUNT 6.5 10^3/uL (4.0-10.5)
[2018-01-22 08:59] LABS: APPEARANCE,URINE SLIGHTLY-CLOUDY; BILIRUBIN,URINE NEGATIVE (NEGATIVE); COLOR,URINE YELLOW; GLUCOSE, URINE NEGATIVE (NEGATIVE); KETONES,URINE NEGATIVE (NEGATIVE); LEUKOCYTE ESTERASE,URINE MODERATE (NEGATIVE); NITRITE,URINE NEGATIVE (NEGATIVE); PROTEIN,URINE NEGATIVE (NEGATIVE); URINE SPECIFIC GRAVITY 1.015
[2018-01-22 09:24] LABS: ALANINE AMINOTRANSFERASE 23 U/L (9-52); ALBUMIN 3.8 g/dL (3.5-5.0); ALKALINE PHOSPHATASE 80 U/L (38-126); ANION GAP 8 (5-19); ASPARTATE AMINO TRANSFERASE 13 U/L (14-36); BILIRUBIN,DIRECT 0.2 mg/dL (0.0-0.4); BILIRUBIN,TOTAL 0.6 mg/dL (0.2-1.3); BLOOD UREA NITROGEN 13 mg/dL (7-20); CALCIUM 9.4 mg/dL (8.4-10.2); CARBON DIOXIDE 31 mmol/L (22-30); CHLORIDE 103 mmol/L (98-107); CHOLESTEROL 134.81 mg/dL (0-200); GLUCOSE 101 mg/dL (75-110); POTASSIUM 4.3 mmol/L (3.6-5.0); SODIUM 142.3 mmol/L (137-145); TOTAL PROTEIN 6.4 g/dL (6.3-8.2); TRIGLYCERIDES 110 mg/dL (<150)
[2018-01-22 09:34] LABS: DIRECT LDL 61 mg/dL (<100)
[2018-01-22 09:39] LABS: ERYTHROCYTE SEDIMENTATION RATE 22 mm/hr (0-30)
== END ==
LOC: OD 07:55
PROVIDERS: ATTEND Internal Medicine
DX: R53.82 Chronic fatigue, unspecified (principal); E03.9 Hypothyroidism, unspecified; E78.5 Hyperlipidemia, unspecified; R73.9 Hyperglycemia, unspecified; N39.0 Urinary tract infection, site not specified
CPT/HCPCS: 36415; 80053; 80061; 81001; 83036; 83735; 84443; 85025; 85652; 87086

== ENCOUNTER → 2018-01-23 | Outpatient (CLI) | payer MEDICARE, OTHER ==
--- NOTE | 2018-01-23 18:14 | XCELERA REPORT ---
[address] [address] Transthoracic Echocardiogram Report Name: JONNY KEITA Age: 77 yrs Gender: Female : 1940 Patient Status: Outpatient Patient Location: Study Date: 01/23/2018 10:00 AM Procedure: A complete two-dimensional transthoracic echocardiogram was performed (2D, M-mode, spectral and color flow Doppler). The study was technically difficult with many images being suboptimal in quality. Reason For Study: MURMUR Ordering Physician: BREONNA ESCOBEDO Performed By: Moriah Martins Interpretation Summary The left ventricular ejection fraction is normal. There is mild concentric left ventricular hypertrophy. The left ventricle is grossly normal size. Doppler measurements suggest pseudonormalized left ventricular relaxation, which is associated with grade II/IV or mild to moderate diastolic dysfunction Regional wall motion abnormalities cannot be excluded due to limited visualization. The right ventricular systolic function is normal. The left atrium is mildly dilated. The right atrium is normal in size There is a trace amount of mitral regurgitation There is no mitral valve stenosis. There is a trace to mild amount of aortic regurgitation There is no aortic valve stenosis No tricuspid regurgitation. There is no tricuspid stenosis. The aortic root is not well visualized. The inferior vena cava was not well visualized There is no pericardial effusion. MMode/2D Measurements & Calculations IVSd: 0.82 cm LVIDd: 4.9 cm FS: 35.9 % Ao root diam: 2.9 cm LVIDs: 3.1 cm EDV(Teich): 110.9 ml Ao root area: 6.8 cm2 LVPWd: 0.87 cm ESV(Teich): 38.5 ml EF(Teich): 65.3 % LVOT diam: 1.7 cm LVOT area: 2.2 cm2 Doppler Measurements & Calculations MV E max belen: MV dec slope: Ao V2 max: AI max belen: 115.7 cm/sec 202.2 cm/sec 249.4 cm/sec MV A max belen: 774.6 cm/sec2 Ao max PG: AI max P.9 mmHg 109.5 cm/sec MV dec time: 16.4 mmHg AI dec slope: MV E/A: 1.1 0.15 sec Ao V2 mean: 141.7 cm/sec 205.2 cm/sec2 Ao mean PG: AI P1/2t: 356.0 msec 9.1 mmHg Ao V2 VTI: 42.6 cm AURORA(I,D): 1.3 cm2 AURORA(V,D): 1.2 cm2 LV V1 max PG: SV(LVOT): 55.7 ml PA V2 max: TR max belen: 5.3 mmHg 123.6 cm/sec 232.3 cm/sec LV V1 mean PG: PA max PG: TR max P.6 mmHg 3.0 mmHg 6.1 mmHg LV V1 max: 114.9 cm/sec LV V1 mean: 81.7 cm/sec LV V1 VTI: 25.4 cm Left Ventricle The left ventricle is grossly normal size. There is mild concentric left ventricular hypertrophy. The left ventricular ejection fraction is normal. Doppler measurements suggest pseudonormalized left ventricular relaxation, which is associated with grade II/IV or mild to moderate diastolic dysfunction. Regional wall motion abnormalities cannot be excluded due to limited visualization. Right Ventricle The right ventricle is grossly normal size. The right ventricular systolic function is normal. Atria The right atrium is normal in size. The left atrium is mildly dilated. Interarterial septum not well visualized and not well dopplered. Cannot comment on ASD/PFO presence. Mitral Valve The mitral valve is not well visualized. There is no mitral valve stenosis. There is a trace amount of mitral regurgitation. Aortic Valve The aortic valve is not well visualized secondary to technical limitations. There is no aortic valve stenosis. There is a trace to mild amount of aortic regurgitation. Tricuspid Valve The tricuspid valve is not well visualized secondary to technical limitations. There is no tricuspid stenosis. No tricuspid regurgitation. Pulmonic Valve The pulmonic valve is not well visualized. Great Vessels The aortic root is not well visualized. The inferior vena cava was not well visualized. Effusions There is no pericardial effusion. : BREONNA ESCOBEDO > Katy Velez
== END ==
LOC: SP 09:55
PROVIDERS: ATTEND Internal Medicine
DX: R01.1 Cardiac murmur, unspecified (principal)
CPT/HCPCS: 93306

== ENCOUNTER → 2019-02-05 | Outpatient (CLI) | payer MEDICARE, OTHER ==
[2019-02-05 08:27] LABS: ABSOLUTE BASOPHILS # (AUTO) 0.1 10^3/uL (0.0-0.2); ABSOLUTE EOSINOPHILS # (AUTO) 0.2 10^3/uL (0.0-0.6); ABSOLUTE LYMPHOCYTES (AUTO) 2.1 10^3/uL (0.5-4.7); ABSOLUTE MONOCYTES (AUTO) 0.6 10^3/uL (0.1-1.4); ABSOLUTE NEUT (AUTO) 5.2 10^3/uL (1.7-8.2); BASOPHILS % (AUTO) 1.3 % (0-2); EOSINOPHILS % (AUTO) 2.6 % (0-6); HEMATOCRIT 40.2 % (36.0-47.0); HEMOGLOBIN 13.6 g/dL (12.0-15.5); LYMPHOCYTES % (AUTO) 25.8 % (13-45); MEAN CORPUSCULAR HEMOGLOBIN 30.3 pg (27.0-33.4); MEAN CORPUSCULAR HGB CONC 33.8 g/dL (32.0-36.0); MEAN CORPUSCULAR VOLUME 90 fl (80-97); MONOCYTES % (AUTO) 6.8 % (3-13); PLATELET COUNT 422 10^3/uL (150-450); RED BLOOD COUNT 4.49 10^6/uL (3.72-5.28); RED CELL DISTRIBUTION WIDTH 14.7 % (11.5-14.0); SEGMENTED NEUTROPHILS % (AUTO) 63.5 % (42-78); TOTAL CELLS COUNTED % (AUTO) 100 %; WHITE BLOOD COUNT 8.2 10^3/uL (4.0-10.5)
[2019-02-05 08:54] LABS: ALBUMIN 3.9 g/dL (3.5-5.0); ALKALINE PHOSPHATASE 82 U/L (38-126); ANION GAP 7 (5-19); ASPARTATE AMINO TRANSFERASE 19 U/L (14-36); BILIRUBIN,DIRECT 0.1 mg/dL (0.0-0.4); BILIRUBIN,TOTAL 0.6 mg/dL (0.2-1.3); BLOOD UREA NITROGEN 17 mg/dL (7-20); CALCIUM 9.8 mg/dL (8.4-10.2); CARBON DIOXIDE 32 mmol/L (22-30); CHLORIDE 103 mmol/L (98-107); CHOLESTEROL 129.06 mg/dL (0-200); GLUCOSE 97 mg/dL (75-110); POTASSIUM 4.6 mmol/L (3.6-5.0); TOTAL PROTEIN 6.6 g/dL (6.3-8.2); TRIGLYCERIDES 103 mg/dL (<150)
[2019-02-05 09:05] LABS: DIRECT LDL 65 mg/dL (<100)
== END ==
LOC: OD 07:53
PROVIDERS: ATTEND Internal Medicine
DX: I10 Essential (primary) hypertension (principal); R53.83 Other fatigue; E78.5 Hyperlipidemia, unspecified; R73.9 Hyperglycemia, unspecified
CPT/HCPCS: 36415; 80053; 80061; 83036; 83735; 84443; 85025

== ENCOUNTER 2019-12-16 06:44 | Inpatient (IN) | payer MEDICARE, OTHER ==
[~2019-12-16 06:44] MED LIST changes: -BUPIVACAINE HCL 0.5 % INJ/PF 30 ML SDV ONE; +CEFAZOLIN 1 GM/D5W RTU 1 GM/50 ML RTUPB IV ONE; -CEFAZOLIN 2 GM/D5W RTU 2 GM/50 ML RTUPB IV PRN
[2019-12-16 08:06] LABS: ABSOLUTE BASOPHILS # (AUTO) 0.1 10^3/uL (0.0-0.2); ABSOLUTE EOSINOPHILS # (AUTO) 0.2 10^3/uL (0.0-0.6); ABSOLUTE LYMPHOCYTES (AUTO) 1.5 10^3/uL (0.5-4.7); ABSOLUTE MONOCYTES (AUTO) 0.8 10^3/uL (0.1-1.4); ABSOLUTE NEUT (AUTO) 7.1 10^3/uL (1.7-8.2); BASOPHILS % (AUTO) 1.2 % (0-2); EOSINOPHILS % (AUTO) 2.3 % (0-6); HEMATOCRIT 38.5 % (36.0-47.0); LYMPHOCYTES % (AUTO) 15.8 % (13-45); MEAN CORPUSCULAR HEMOGLOBIN 29.7 pg (27.0-33.4); MEAN CORPUSCULAR HGB CONC 33.8 g/dL (32.0-36.0); MEAN CORPUSCULAR VOLUME 88 fl (80-97); PLATELET COUNT 411 10^3/uL (150-450); RED BLOOD COUNT 4.39 10^6/uL (3.72-5.28); RED CELL DISTRIBUTION WIDTH 15.4 % (11.5-14.0); SEGMENTED NEUTROPHILS % (AUTO) 72.7 % (42-78); TOTAL CELLS COUNTED % (AUTO) 100 %; WHITE BLOOD COUNT 9.7 10^3/uL (4.0-10.5)
[2019-12-16] MEDS ORDERED: MIDAZOLAM 2 MG/2 ML INJ ONE (08:09)
[2019-12-16] MEDS ORDERED: KETAMINE HCL INJ 500 MG/10 ML VIAL ONE (08:09)
[2019-12-16] MEDS ORDERED: FENTANYL CITRATE INJ/PF 100 MCG/2 ML AMPUL ONE (08:09)
[2019-12-16] MEDS ORDERED: PROPOFOL INJ 200 MG/20 ML VIAL IV ONE ×2 (08:10→09:48)
[2019-12-16 08:17] LABS: ANION GAP 7 (5-19); BLOOD UREA NITROGEN 14 mg/dL (7-20); CARBON DIOXIDE 26 mmol/L (22-30); CHLORIDE 106 mmol/L (98-107); GLUCOSE 111 mg/dL (75-110); POTASSIUM 4.7 mmol/L (3.6-5.0)
[2019-12-16] MEDS ORDERED: LIDOCAINE 1% INJ-PF (10 MG/ML) 30 ML SDV ONE (08:25)
[2019-12-16] MEDS ORDERED: DIPHENHYDRAMINE HCL 50 MG/ML VIAL IV PRN (09:06)
[2019-12-16] MEDS ORDERED: MORPHINE SULFATE 10 MG/ML INJ IV PRN (09:06)
[2019-12-16] MEDS ORDERED: FENTANYL CITRATE INJ/PF 100 MCG/2 ML AMPUL IV PRN ×3 (09:06)
[2019-12-16] MEDS ORDERED: PROMETHAZINE HCL INJ 25 MG/1 ML VIAL IV PRN ×2 (09:06)
[2019-12-16] MEDS ORDERED: MEPERIDINE HCL/PF INJ 25 MG/1 ML DISP.SYRIN IV PRN (09:06)
[2019-12-16] MEDS ORDERED: KETOROLAC TROMETHAMINE INJ/PF 30 MG/1 ML SDV IV PRN (09:49)
--- NOTE | 2019-12-16 09:49 | Operative Report ---
Operative Report DATE OF SURGERY: 12/16/19 PREOPERATIVE DIAGNOSIS: 1. Large right buttock wound, with infection. 2. His tory of chronic sacral wounds POSTOPERATIVE DIAGNOSIS: Same with purulent and scarred subcutaneous and dermal infection involving the right buttock down to the fascia OPERATION: 1. Wide excisional debridement of skin, subcutaneous tissue, scar, chronic abscess cavity, and portions of fascia right buttock. 2. Packing of wound open SURGEON: NADER HERNANDEZ 1ST TRAVELING PHLEBOTOMIST: None ANESTHESIA: GA TISSUE REMOVED OR ALTERED: Skin, subcutaneous tissue scar tissue abscess cavity, pus COMPLICATIONS: None ESTIMATED BLOOD LOSS: 75 cc INTRAOPERATIVE FINDINGS: See below PROCEDURE: The patient was in the preop holding area, right buttock marked, the patient taken to the main operating room and general anesthesia was induced via endotracheal intubation. She was placed in the prone position, arms slightly abducted. The right buttock was prepped and draped sterile fashion with a Betadine Surgical plan surgical timeout were conducted. The findings are significant for a large, 8 to 10 cm mass-effect involving the right buttock centrally, with a central umbilicated draining site. The draining site and surrounding skin was anesthetized with 1% plain lidocaine. An elliptical excisional was made in the skin with a #10 blade, and a large portion of the underlying abscess cavity, containing school meeting, keratinized tissue was excised. I continue to excise portions of subcutaneous tissue, scar tissue and abscess cavity in a piecemeal fashion working circumferentially for approximately 20 minutes. Tissue is extremely dense due to the previous chronic wound. There was no foreign body encountered. The dissection involved her fingers much of the skin as possible, shaving the infection and scar tissue in a fragmented fashion off of the deep dermis. At the conclusion of the skin debridement, the final hole was approximately 5 x 5 cm, however the undermined pocket was approximately 15 cm in vertical dimension and 12 cm in transverse or horizontal dimension. The extent of the dissection was confined primarily to the deep subcutaneous tissue. Towards the sacrum, some fragments of fascia were sharply debrided. In the inferior aspect of the wound cavity several nodules of scar tissue excised and submitted in a separate container labeled chronic wound, rule out malignancy. We irrigated the wound carefully several times with saline to control bleeders with electrocautery. I felt the operation was complete. I estimate 95% of the chronic pathology was excised grossly. No counterincisions or formal drains inserted. Wound was packed with two thirds of a moistened saline Kerlix roll. Dry dressings applied. Patient tolerated procedure well, rotated in the supine position, extubated, taken to recovery room in stable condition.
[2019-12-16] MEDS ORDERED: OXYCODONE-ACETAMINOPHEN 5-325 MG TABLET PO PRN (09:50)
[2019-12-16] MEDS: FENTANYL CITRATE INJ/PF 100 MCG/2 ML AMPUL ONE ×2 (09:55→10:13)
[2019-12-16] MEDS ORDERED: CEFAZOLIN 1 GM/D5W RTU 50 ML IV SCH (10:00)
[2019-12-16] MEDS ORDERED: CEFAZOLIN 1 GM/D5W RTU 1 GM/50 ML RTUPB IV SCH (10:00)
[2019-12-16] MEDS: NORMAL SALINE 1000 ML 1,000 ML IV PRN (12:29)
[2019-12-16] MEDS ORDERED: LIDOCAINE 2% INJ-PF (20 MG/ML) 2 ML AMPUL ONE (13:48)
[2019-12-16] MEDS ORDERED: SUCCINYLCHOLINE CHLORIDE INJ 200 MG/10 ML VIAL ONE (13:48)
[2019-12-16] MEDS ORDERED: ONDANSETRON HCL INJ/PF 4 MG/2 ML SDV ONE (13:48)
[2019-12-16] MEDS: CEFAZOLIN 1 GM/D5W RTU 1 GM/50 ML RTUPB IV SCH ×2 (14:30→21:17)
[2019-12-16] MEDS: DOCUSATE SODIUM 100 MG CAPSULE PO SCH (17:17)
[2019-12-16] MEDS ORDERED: ALPRAZOLAM 0.25 MG TABLET PO PRN (17:25)
[2019-12-16] MEDS ORDERED: ALBUTEROL SULFATE HFA (90 MCG/PUFF) 8 GM MDI (1 MDI/ER DISP) IH PRN (17:25)
[2019-12-16] MEDS: ONDANSETRON HCL INJ/PF 4 MG/2 ML SDV IV PRN (17:43)
[2019-12-16] MEDS ORDERED: ERGOCALCIFEROL (VITAMIN D2) 50000 UNIT (1.25 MG) CAPSULE PO SCH (18:00)
[2019-12-16] MEDS ORDERED: FLUVOXAMINE 25 MG PO SCH (18:00)
[2019-12-16] MEDS: MODAFINIL 100 MG TABLET PO SCH (18:18)
[2019-12-16] MEDS: OXYCODONE-ACETAMINOPHEN 5-325 MG TABLET PO PRN (21:13)
[2019-12-16] MEDS: METRONIDAZOLE 500 MG TABLET PO SCH (21:14)
[2019-12-16] MEDS ORDERED: ATORVASTATIN CALCIUM 20 MG TABLET PO SCH (22:00)
[2019-12-16] MEDS ORDERED: (PENDING PHARMACY ID) (Zolpidem Tartrate [Ambien 10 Mg Tablet] 10 MG) PO SCH (22:00)
[2019-12-16] MEDS ORDERED: IPRATROPIUM BROMIDE 0.06% NASAL SPRAY 15 ML NASL SCH (22:00)
[2019-12-16] MEDS ORDERED: ZOLPIDEM TARTRATE 5 MG TABLET PO SCH (22:00)
[2019-12-17] MEDS: CEFAZOLIN 1 GM/D5W RTU 1 GM/50 ML RTUPB IV SCH ×2 (06:07→13:11)
[2019-12-17] MEDS: OXYCODONE-ACETAMINOPHEN 5-325 MG TABLET PO PRN ×2 (06:07→12:36)
[2019-12-17] MEDS: NORMAL SALINE 1000 ML 1,000 ML IV PRN (06:09)
[2019-12-17 06:43] LABS: ABSOLUTE BASOPHILS # (AUTO) 0.1 10^3/uL (0.0-0.2); ABSOLUTE EOSINOPHILS # (AUTO) 0.3 10^3/uL (0.0-0.6); ABSOLUTE LYMPHOCYTES (AUTO) 2.1 10^3/uL (0.5-4.7); ABSOLUTE MONOCYTES (AUTO) 0.8 10^3/uL (0.1-1.4); ABSOLUTE NEUT (AUTO) 6.5 10^3/uL (1.7-8.2); BASOPHILS % (AUTO) 1.1 % (0-2); EOSINOPHILS % (AUTO) 2.7 % (0-6); HEMATOCRIT 37.4 % (36.0-47.0); HEMOGLOBIN 12.6 g/dL (12.0-15.5); LYMPHOCYTES % (AUTO) 21.3 % (13-45); MEAN CORPUSCULAR HEMOGLOBIN 29.8 pg (27.0-33.4); MEAN CORPUSCULAR HGB CONC 33.6 g/dL (32.0-36.0); MEAN CORPUSCULAR VOLUME 89 fl (80-97); MONOCYTES % (AUTO) 7.9 % (3-13); PLATELET COUNT 369 10^3/uL (150-450); RED BLOOD COUNT 4.21 10^6/uL (3.72-5.28); RED CELL DISTRIBUTION WIDTH 15.4 % (11.5-14.0); TOTAL CELLS COUNTED % (AUTO) 100 %; WHITE BLOOD COUNT 9.7 10^3/uL (4.0-10.5)
--- NOTE | 2019-12-17 07:50 | PDOC PROGRESS REPORT ---
Subjective Progress Note for:: 12/17/19 Reason For Visit: S31.819S UNSPECIFIED OPEN WOUND OF RIGHT BUTTOCK, Doing well, minimal drainage; pain controlled Physical Exam Vital Signs: Temp Pulse Resp BP Pulse Ox 98.8 F 83 16 112/60 98 12/17/19 00:00 12/17/19 00:00 12/17/19 00:00 12/17/19 00:00 12/17/19 00:00 Intake & Output 12/16/19 12/17/19 12/18/19 06:59 06:59 06:59 Intake Total 0 1726 Output Total 425 Balance 0 1301 Weight 83.91 kg 83 kg General appearance: PRESENT: no acute distress Additional comments: right buttock examined, packing removed; skin intact aroud debridement site opening; no foul smell; no sig. bleeding; repacked with gauze Results Laboratory Results: 12/17/19 05:34 12/16/19 07:43 12/16/19 12/16/19 12/17/19 07:43 07:43 05:34 WBC 9.7 9.7 RBC 4.39 4.21 Hgb 13.0 12.6 Hct 38.5 37.4 MCV 88 89 MCH 29.7 29.8 MCHC 33.8 33.6 RDW 15.4 H 15.4 H Plt Count 411 369 Seg Neutrophils % 72.7 67.0 Sodium 138.8 Potassium 4.7 Chloride 106 Carbon Dioxide 26 Anion Gap 7 BUN 14 Creatinine 0.51 L Est GFR ( Amer) > 60 Glucose 111 H Calcium 9.0 Assessment & Plan - Diagnosis (1) Wound of right buttock Is this a current diagnosis for this admission?: Yes Plan: s/p debridement, doing well PLAN: 1. Home with home health coordinating wound vac, black sponge, 125 mm HG; change q three days 2. Pt. may travel 3. Send home with donut to sit on right buttock 4. Script for percocet provided - Time Time Spent: 30 to 50 Minutes Critical Time spent with patient: 15-24 minutes Medications reviewed and adjusted accordingly: Yes Anticipated Discharge Disposition: Home with Home Health Anticipated Discharge Timeframe: within 24 hours
[2019-12-17] MEDS: MODAFINIL 100 MG TABLET PO SCH (09:39)
[2019-12-17] MEDS: DOCUSATE SODIUM 100 MG CAPSULE PO SCH (09:39)
[2019-12-17] MEDS: METRONIDAZOLE 500 MG TABLET PO SCH (09:40)
[2019-12-17] MEDS ORDERED: ASPIRIN 81 MG TABLET, ENT COATED PO SCH (10:00)
[2019-12-17] MEDS ORDERED: VERAPAMIL HCL 180 MG TABLET.SA PO SCH (10:00)
[2019-12-17] MEDS ORDERED: FLUTICASONE NASAL SPRAY 50 MCG/SPRY 120 SPRAY/16 GM NASL SCH (10:00)
[2019-12-17 12:51] VITALS: BP 104/72
[2019-12-17] MEDS: ONDANSETRON HCL INJ/PF 4 MG/2 ML SDV IV PRN (13:41)
--- NOTE | 2019-12-17 13:41 | Discharge Summary ---
Discharge Summary (SDC) - Discharge Final Diagnosis: Chronic wound right buttock status post operative debridement and packing Date of Surgery: 12/16/19 Discharge Date: 12/17/19 Condition: Good Treatment or Instructions: Patient will be discharged home today; home health care will provide wound VAC therapy, 125mmHg suction, black sponge starting later today or tomorrow; VAC to be changed every 3 days. Patient to follow-up with [facility] in a week to 10 days for wound check. No further antibiotics prescribed. Prescription for Percocet provided. Patient activity ad luis manuel., no formal restrictions. Referrals: BREONNA ESCOBEDO MD [Primary Care Provider] - Discharge Diet: As Tolerated Discharge Activity: Activity As Tolerated Report the Following to Your Physician Immediately: Shortness of Breath
== END 2019-12-17 15:15 | disposition home health service (06) | DRG 572 ==
LOC: INOR 06:44 → 4W 11:24
PROVIDERS: ADMIT Surgery; ATTEND Surgery
PROC: 0JB90ZZ Excision of Buttock Subcutaneous Tissue and Fascia, Open Approach (ICD-10-PCS; principal; 2019-12-16 08:30)
DX: L02.31 Cutaneous abscess of buttock (principal); I10 Essential (primary) hypertension; F32.9 Major depressive disorder, single episode, unspecified; M19.90 Unspecified osteoarthritis, unspecified site; Z87.2 Personal history of diseases of the skin and subcutaneous tissue; Z88.8 Allergy status to other drugs, medicaments and biological substances; Z88.5 Allergy status to narcotic agent; Z88.1 Allergy status to other antibiotic agents; Z88.3 Allergy status to other anti-infective agents; Z83.3 Family history of diabetes mellitus; Z82.49 Family history of ischemic heart disease and other diseases of the circulatory system
CPT/HCPCS: 300; 36415; 80048; 85025; 87070; 87205; 87635; 88304; C9803; J0330; J0690; J1885; J2250; J2405; J2704; J3010; J3490; J7030